=== PATIENT | male | born 1930 | race Hispanic/Latino ===

== ENCOUNTER 2016-12-31 10:11 | Outpatient (CLI) | payer MEDICARE ==
--- NOTE | 2016-12-31 11:49 | Fluoroscopy Report ---
Barium swallow: History: Vomiting. Findings: There is small stricture identified at the cervical esophagus distal to the hypopharynx. There is 50% narrowing of the lumen noted at the site of stricture. Distally the esophagus reveals no extrinsic or intrinsic filling defects or stricture. There is extrinsic pressure noted from left ventricle at the distal esophagus causing delayed transit of barium through the distal esophagus in supine and prone position. Due to this there is reflux identified extending to the lower cervical esophagus. Impression: Small stricture cervical esophagus. Reflux as detailed above. Further evaluation may be recommended.
--- NOTE | 2016-12-31 11:51 | XRay Report ---
Chest 2 views: History: Abnormal lung findings. Findings: Normal cardiomediastinal silhouette. Trachea is midline. Evidence of emphysema with minimal bilateral pleural effusion. No consolidation. Impression: Emphysema with bilateral pleural effusion.
== END 2016-12-31 10:12 | disposition home or self-care (01) ==
LOC: XRAY 10:11
PROVIDERS: ATTEND Internal Medicine
DX: J43.9 Emphysema, unspecified (principal); J90 Pleural effusion, not elsewhere classified; K21.9 Gastro-esophageal reflux disease without esophagitis; K22.2 Esophageal obstruction; R91.8 Other nonspecific abnormal finding of lung field
CPT/HCPCS: 71020; 74220